=== PATIENT | male | born 1990 | race Caucasian/White ===

== ENCOUNTER 2018-09-28 14:27 | Emergency (ER) | payer MEDICAID ==
[~2018-09-28] VITALS: Ht 175.3 cm; Wt 66.3 kg
[2018-09-28 14:54] LABS: PH, VENOUS 7.241 pH (7.320-7.420)
[2018-09-28 14:55] LABS: O2 FLOW ROOM AIR L/min
[2018-09-28] MEDS ORDERED: SODIUM CHLORIDE 0.9% 1,000ML IVBOLUS ONE ×2 (15:00→16:30)
[2018-09-28] MEDS ORDERED: SODIUM CHLORIDE FLUSH 10ML SYR IVF ONE (15:00)
[2018-09-28 15:02] LABS: BASOPHILS # (AUTO) 0.04 x10^3/uL (0-0.1); BASOPHILS % (AUTO) 1 % (0-1); EOSINOPHILS # (AUTO) 0.06 x10^3/uL (0-0.4); EOSINOPHILS % (AUTO) 1 % (1-7); LYMPHOCYTES # (AUTO) 1.48 x10^3/uL (1-3.4); LYMPHOCYTES % (AUTO) 22 % (22-44); MD NO; MEAN CORPUSCULAR HEMOGLOBIN 32.9 pg (27.5-34.5); MEAN CORPUSCULAR VOLUME 96.8 fL (81-97); MEAN PLATELET VOLUME 8.4 fL (7.4-10.4); MONOCYTES # (AUTO) 0.35 x10^3/uL (0.2-0.8); MONOCYTES % (AUTO) 5 % (2-9); NEUTROPHILS # (AUTO) 4.68 x10^3/uL (1.8-6.8); NEUTROPHILS % (AUTO) 71 % (42-75); PLATELET COUNT 296 x10^3/uL (130-400); RED BLOOD COUNT 4.35 x10^6/uL (4.38-5.82)
[2018-09-28 15:08] LABS: ALBUMIN 3.6 g/dL (3.4-5.0); ANION GAP 17 mmol/L (5-15); CALCIUM 8.4 mg/dL (8.5-10.1); CHLORIDE 94 mmol/L (98-107); CREATININE 1.32 mg/dL (0.7-1.3)
[2018-09-28 15:15] LABS: ACETONE, SERUM Large (80mg/dL) mg/dL (Negative)
[2018-09-28 16:57] VITALS: BP 120/78
== END 2018-09-28 17:00 | disposition home or self-care (01) ==
LOC: ED 16:43
DX: E10.10 Type 1 diabetes mellitus with ketoacidosis without coma (principal); F17.200 Nicotine dependence, unspecified, uncomplicated
CPT/HCPCS: 36415; 80048; 82010; 82040; 82803; 85025; 96360; 99283; J7030

== ENCOUNTER 2018-11-13 14:38 | Inpatient (IN) | payer MEDICAID ==
[~2018-11-13] VITALS: Ht 175.3 cm; Wt 76.2 kg
[2018-11-13 15:09] LABS: PH, VENOUS 7.359 pH (7.320-7.420)
[2018-11-13 15:10] LABS: O2 FLOW RA L/min
[2018-11-13 15:12] LABS: BASOPHILS # (AUTO) 0.02 x10^3/uL (0-0.1); BASOPHILS % (AUTO) 0 % (0-1); EOSINOPHILS # (AUTO) 0.14 x10^3/uL (0-0.4); EOSINOPHILS % (AUTO) 2 % (1-7); LYMPHOCYTES # (AUTO) 1.24 x10^3/uL (1-3.4); LYMPHOCYTES % (AUTO) 13 % (22-44); MD NO; MEAN CORPUSCULAR HEMOGLOBIN 32.2 pg (27.5-34.5); MEAN CORPUSCULAR HGB CONC 33.7 g/dL (33.2-36.2); MEAN CORPUSCULAR VOLUME 95.8 fL (81-97); MONOCYTES # (AUTO) 0.51 x10^3/uL (0.2-0.8); MONOCYTES % (AUTO) 5 % (2-9); NEUTROPHILS # (AUTO) 7.79 x10^3/uL (1.8-6.8); NEUTROPHILS % (AUTO) 80 % (42-75); PLATELET COUNT 257 x10^3/uL (130-400); RED BLOOD COUNT 3.97 x10^6/uL (4.38-5.82)
[2018-11-13 15:21] LABS: ALANINE AMINOTRANSFERASE 21 U/L (12-78); ALBUMIN 3.4 g/dL (3.4-5.0); ANION GAP 9 mmol/L (5-15); CALCIUM 8.3 mg/dL (8.5-10.1); CHLORIDE 95 mmol/L (98-107); CREATININE 1.25 mg/dL (0.7-1.3)
[2018-11-13 15:24] LABS: ALKALINE PHOSPHATASE 120 U/L (45-117); BILIRUBIN,TOTAL 0.3 mg/dL (0.2-1.0); TOTAL PROTEIN 6.7 g/dL (6.4-8.2)
[2018-11-13] MEDS ORDERED: OXYcodone/APAP 10/325MG TABLET ONE (15:55)
[2018-11-13] MEDS ORDERED: INSULIN REGULAR 100 UNITS/ML, 3ML VIAL ONE (15:56)
[2018-11-13] MEDS ORDERED: INSULIN REGULAR 100 UNITS/ML, 3ML VIAL SQ-INSULIN ONE (16:00)
[2018-11-13] MEDS ORDERED: OXYcodone/APAP 10/325MG TABLET PO ONE (16:00)
[2018-11-13] MEDS ORDERED: SODIUM CHLORIDE 0.9%, 500ML IVBOLUS ONE (16:00)
[2018-11-13 16:17] LABS: ACETONE, SERUM Moderate(40mg/dL) mg/dL (Negative)
[2018-11-13] MEDS ORDERED: INSULIN (16:23)
[2018-11-13] MEDS ORDERED: OXYC-302 PO (16:23)
[2018-11-13] MEDS ORDERED: ALPR0.25 PO (16:23)
[2018-11-13] MEDS ORDERED: ENALAPRILAT 1.25 MG/ML, 2ML IV PRN (16:30)
[2018-11-13] MEDS ORDERED: ONDANSETRON 2MG/ML, 2ML IVPush PRN (16:30)
[2018-11-13] MEDS ORDERED: hydrALAzine 20 MG/ML, 1ML IV PRN (16:30)
[2018-11-13] MEDS ORDERED: LACTULOSE 10 GM/15 ML UDC PO ONE (16:30)
[2018-11-13] MEDS ORDERED: GLUCAGON 1 MG IM PRN (16:30)
[2018-11-13] MEDS ORDERED: LABETALOL 5MG/ML, 20ML IVPush PRN (16:30)
[2018-11-13] MEDS ORDERED: DEXTROSE 4 GM TAB.CHEW PO PRN (16:30)
[2018-11-13] MEDS ORDERED: DOCUSATE 100 MG CAPSULE PO PRN (16:30)
[2018-11-13] MEDS ORDERED: POLYETHYLENE GLYCOL 17 GM PACKET PO PRN (16:30)
[2018-11-13] MEDS: NICOTINE 14MG/24 HR PATCH.TD24 TD SCH (16:30)
[2018-11-13] MEDS ORDERED: ACETAMINOPHEN 325 MG TABLET PO PRN (16:30)
[2018-11-13] MEDS ORDERED: DEXTROSE 50%, 50ML SYRINGE IVPush PRN (16:30)
[2018-11-13 16:46] LABS: HEMOGLOBIN A1C 13.2 % (4.2-6.3)
[2018-11-13 16:54] LABS: MICROSCOPIC INDICATED
[2018-11-13 16:55] LABS: CULTURE INDICATED? NO
[2018-11-13] MEDS: morphine SULFATE 10 MG/ML, 1ML IVPush PRN ×2 (17:49→22:03)
[2018-11-13] MEDS: SODIUM CHLORIDE 0.9% 1,000 ML IV SCH ×2 (17:49→23:18)
[2018-11-13 17:58] VITALS: BP 128/80
[2018-11-13 19:25] VITALS: BP 117/73
[2018-11-13] MEDS: INSULIN LISPRO 100 UNITS/ML, PEN SQ-INSULIN SCH (22:02)
[2018-11-13] MEDS: SODIUM CHLORIDE FLUSH 10ML SYR IVF SCH (22:03)
[2018-11-13] MEDS: BACLOFEN 10 MG TABLET PO PRN (23:18)
[2018-11-14 01:15] VITALS: BP 113/72
[2018-11-14] MEDS: morphine SULFATE 10 MG/ML, 1ML IVPush PRN ×3 (01:38→09:51)
[2018-11-14 05:47] VITALS: BP 126/77
[2018-11-14] MEDS: SODIUM CHLORIDE 0.9% 1,000 ML IV SCH ×3 (05:49→16:03)
[2018-11-14 06:18] LABS: ANION GAP 7 mmol/L (5-15); CHLORIDE 104 mmol/L (98-107); CREATININE 1.02 mg/dL (0.7-1.3)
[2018-11-14 07:45] VITALS: BP 136/83
[2018-11-14] MEDS: BACLOFEN 10 MG TABLET PO PRN (08:17)
[2018-11-14] MEDS: OXYcodone/APAP 5/325MG TABLET PO PRN ×2 (08:17→12:18)
[2018-11-14] MEDS: INSULIN LISPRO 100 UNITS/ML, PEN SQ-INSULIN SCH ×3 (08:19→16:00)
[2018-11-14] MEDS: SODIUM CHLORIDE FLUSH 10ML SYR IVF SCH (08:21)
[2018-11-14] MEDS ORDERED: SENNA/DOCUSATE TABLET PO SCH (09:00)
[2018-11-14] MEDS ORDERED: INSU100I13 SQ ×2 (10:12)
[2018-11-14] MEDS ORDERED: INSU100I18 SQ ×2 (10:12→15:11)
[2018-11-14] MEDS ORDERED: INSULIN GLARGINE 100 UNITS/ML, PEN SQ-INSULIN SCH ×2 (10:30→21:00)
[2018-11-14 12:53] VITALS: BP 128/79
[2018-11-14] MEDS: NICOTINE 14MG/24 HR PATCH.TD24 TD SCH (16:03)
== END 2018-11-14 17:01 | disposition home or self-care (01) | DRG 392 ==
LOC: ED 15:50 → 3NE 15:56 → UNDOADMIN 15:56 → EDIP 15:56 → ED 15:56
PROVIDERS: ADMIT Family Medicine; ATTEND Family Medicine
DX: K59.03 Drug induced constipation (principal); E87.1 Hypo-osmolality and hyponatremia; E86.0 Dehydration; F17.200 Nicotine dependence, unspecified, uncomplicated; E10.40 Type 1 diabetes mellitus with diabetic neuropathy, unspecified; R33.9 Retention of urine, unspecified; T50.905A Adverse effect of unspecified drugs, medicaments and biological substances, initial encounter; Y92.89 Other specified places as the place of occurrence of the external cause; G89.29 Other chronic pain; E10.65 Type 1 diabetes mellitus with hyperglycemia; F41.9 Anxiety disorder, unspecified; Z88.1 Allergy status to other antibiotic agents
CPT/HCPCS: 36415; 74018; 76770; 80048; 80053; 81001; 82010; 82803; 82947; 82962; 83036; 83690; 83735; 84100; 85025; 96361; 96374; G0378; J1815; J2270; J7030; J7040

== ENCOUNTER 2018-12-05 13:33 | Emergency (ER) | payer MEDICAID ==
[~2018-12-05] VITALS: Ht 175.3 cm; Wt 71.2 kg
[~2018-12-05 13:33] MED LIST: ALPR0.25 PO; INSU100I13 SQ; INSU100I18 SQ; INSULIN; OXYC-302 PO
[2018-12-05 14:44] LABS: PH, VENOUS 7.294 pH (7.320-7.420)
--- NOTE | 2018-12-05 14:44 | NUR ---
PT AMBULATORY TO ROOM FROM LOBBY, UPRIGHT STEADY GAIT
[2018-12-05] MEDS ORDERED: OXYC5CAP2 PO (14:47)
[2018-12-05] MEDS ORDERED: ALPR1TAB2 PO (14:47)
[2018-12-05 14:57] LABS: ALBUMIN 3.6 g/dL (3.4-5.0); ANION GAP 5 mmol/L (5-15); CALCIUM 8.3 mg/dL (8.5-10.1); CHLORIDE 97 mmol/L (98-107); O2 FLOW ROOM AIR L/min
[2018-12-05] MEDS ORDERED: SODIUM CHLORIDE 0.9% 1,000ML IVBOLUS ONE ×2 (15:00→15:30)
[2018-12-05 15:04] LABS: BASOPHILS # (AUTO) 0.04 x10^3/uL (0-0.1); BASOPHILS % (AUTO) 1 % (0-1); EOSINOPHILS % (AUTO) 5 % (1-7); LYMPHOCYTES # (AUTO) 2.14 x10^3/uL (1-3.4); LYMPHOCYTES % (AUTO) 27 % (22-44); MD NO; MEAN CORPUSCULAR HEMOGLOBIN 31.2 pg (27.5-34.5); MEAN CORPUSCULAR HGB CONC 33.7 g/dL (33.2-36.2); MEAN CORPUSCULAR VOLUME 92.5 fL (81-97); MONOCYTES # (AUTO) 0.56 x10^3/uL (0.2-0.8); MONOCYTES % (AUTO) 7 % (2-9); NEUTROPHILS % (AUTO) 60 % (42-75); PLATELET COUNT 297 x10^3/uL (130-400); RED BLOOD COUNT 4.57 x10^6/uL (4.38-5.82)
[2018-12-05 15:07] LABS: ALANINE AMINOTRANSFERASE 21 U/L (12-78); ALKALINE PHOSPHATASE 99 U/L (45-117); BILIRUBIN,TOTAL 0.5 mg/dL (0.2-1.0); CREATININE 1.64 mg/dL (0.7-1.3); TOTAL PROTEIN 7.3 g/dL (6.4-8.2)
[2018-12-05 15:42] LABS: ACETONE, SERUM Negative (Negative)
--- NOTE | 2018-12-05 15:53 | NUR ---
WARM BLANKET PROVIDED. URINE COLLECTED AND SENT TO LAB.
[2018-12-05 16:08] LABS: MICROSCOPIC AUTO
[2018-12-05 16:16] LABS: CULTURE INDICATED? NO
[2018-12-05 16:24] VITALS: BP 115/74
--- NOTE | 2018-12-05 16:24 | NUR ---
FIRST LITER OF NS DONE. FS BS CHECKED AND READS "HI" (>600). CARL ANTHONY NOTIFIED.
--- NOTE | 2018-12-05 16:25 | NUR ---
SECOND LITER NS BSTARTED.
[2018-12-05] MEDS ORDERED: INSULIN REGULAR 100 UNITS/ML, 3ML VIAL IVPush ONE (16:30)
[2018-12-05] MEDS ORDERED: INSULIN REGULAR 100 UNITS/ML, 3ML VIAL ONE (16:36)
--- NOTE | 2018-12-05 16:47 | NUR ---
Insulin double checked with Fabian Dickson-LUIS, prior to administration.
--- NOTE | 2018-12-05 17:37 | NUR ---
Patient/Caregiver given discharge instructions and they have confirmed that they understand the instructions. Patient ambulatory with steady gait.
== END 2018-12-05 17:38 | disposition home or self-care (01) ==
LOC: ED 17:27
DX: E10.65 Type 1 diabetes mellitus with hyperglycemia (principal)
CPT/HCPCS: 36415; 80053; 81001; 82010; 82803; 82962; 83930; 85025; 96361; 96374; 99283; J7030

== ENCOUNTER 2019-02-19 10:06 | Emergency (ER) | payer MEDICAID ==
[~2019-02-19] VITALS: Ht 175.3 cm; Wt 69.1 kg
[~2019-02-19 10:06] MED LIST changes: +ALPR1TAB2 PO; +OXYC5CAP2 PO
--- NOTE | 2019-02-19 10:26 | NUR ---
PT PRESENTED TO ED WITH VOMITTING X 3 DAYS. PT STATES HE WAS INTUBATED LAST WEEK FOR DKA. ASSESSMENT COMPLETED. PT PLACED ON BP AND CONT. PULSE OXIMETER. AWAITING MD.
--- NOTE | 2019-02-19 11:08 | NUR ---
attempted iv x 3 and pt refusing further ivs
--- NOTE | 2019-02-19 11:20 | NUR ---
PT STATED THAT I COULD NOT ATTEMPT ANOTHER IV. PT STATED I WANT A CENTRAL LINE. PT MOVED TO TRAUMA 3 FOR CENTRAL LINE INSERTION. REPORT GIVEN TO AUDELIA SMITH.
--- NOTE | 2019-02-19 11:25 | NUR ---
PT MOVED TO TR03. PT A&OX4. NO ACUTE DISTRESS NOTED. Addendum: 02/19/19 at 1139 by MARVIN RECEIVED BEDSIDE REPORT FROM LUIS LOCKETT. ASSUMING PT CARE AT THIS TIME.
[2019-02-19] MEDS ORDERED: SODIUM CHLORIDE 0.9% 1,000ML IVBOLUS ONE (11:30)
[2019-02-19] MEDS ORDERED: SODIUM CHLORIDE FLUSH 10ML SYR IVF ONE (11:30)
[2019-02-19] MEDS ORDERED: LORazepam 2 MG/ML, 1ML IVPush ONE (11:30)
[2019-02-19] MEDS ORDERED: METOCLOPRAMIDE 5 MG/ML, 2ML IVPush ONE (11:30)
--- NOTE | 2019-02-19 11:38 | NUR ---
US GUIDED IV ESTABLISHED BY BRANDON SHABAZZ. PT TOLERATED WITH NO COMPLICATIONS.
[2019-02-19 11:43] VITALS: BP 145/93
[2019-02-19] MEDS ORDERED: METOCLOPRAMIDE 5 MG/ML, 2ML ONE (11:47)
[2019-02-19] MEDS ORDERED: LORazepam 2 MG/ML, 1ML ONE (11:48)
[2019-02-19 12:02] LABS: BASOPHILS # (AUTO) 0.03 x10^3/uL (0-0.1); BASOPHILS % (AUTO) 1 % (0-1); EOSINOPHILS # (AUTO) 0.06 x10^3/uL (0-0.4); EOSINOPHILS % (AUTO) 1 % (1-7); LYMPHOCYTES # (AUTO) 0.92 x10^3/uL (1-3.4); LYMPHOCYTES % (AUTO) 20 % (22-44); MD NO; MEAN CORPUSCULAR HEMOGLOBIN 30.7 pg (27.5-34.5); MEAN CORPUSCULAR HGB CONC 33.5 g/dL (33.2-36.2); MEAN CORPUSCULAR VOLUME 91.5 fL (81-97); MEAN PLATELET VOLUME 9.2 fL (7.4-10.4); MONOCYTES % (AUTO) 9 % (2-9); NEUTROPHILS # (AUTO) 3.13 x10^3/uL (1.8-6.8); NEUTROPHILS % (AUTO) 69 % (42-75); PLATELET COUNT 263 x10^3/uL (130-400); RED BLOOD COUNT 4.27 x10^6/uL (4.38-5.82); RED CELL DISTRIBUTION WIDTH 13.9 % (9.4-14.8)
--- NOTE | 2019-02-19 12:07 | NUR ---
PT REFUSING TO STAY. PT WANTS TO AMA. EDMD AWARE. PT EDUCATED REAGARDING ALL RISKS OF LEAVING AMA, INCLUDING . PT VERBALIZED UNDERSTANDING. PT TOOK OFF ALL MONITORS. PT LEFT WITH ALL PERSONAL BELONGINGS.
[2019-02-19 12:12] LABS: ALANINE AMINOTRANSFERASE 16 U/L (12-78); ALBUMIN 3.5 g/dL (3.4-5.0); ANION GAP 13 mmol/L (5-15); CALCIUM 8.5 mg/dL (8.5-10.1); CHLORIDE 87 mmol/L (98-107); CREATININE 1.34 mg/dL (0.7-1.3)
[2019-02-19 12:14] LABS: ALKALINE PHOSPHATASE 103 U/L (45-117); BILIRUBIN,TOTAL 0.5 mg/dL (0.2-1.0); TOTAL PROTEIN 7.3 g/dL (6.4-8.2)
--- NOTE | 2019-02-19 12:14 | NUR ---
PIV D/C WITH TIP INTACT. PRESSURE DRESSING APPLIED
--- NOTE | 2019-02-19 12:17 | NUR ---
PT AMBULATORY WITH STEADY GAIT.
== END 2019-02-19 12:19 | disposition left against medical advice (07) ==
LOC: ED 12:13
DX: E11.65 Type 2 diabetes mellitus with hyperglycemia (principal); E11.10 Type 2 diabetes mellitus with ketoacidosis without coma; E87.6 Hypokalemia; E86.0 Dehydration; N28.9 Disorder of kidney and ureter, unspecified; E87.1 Hypo-osmolality and hyponatremia
CPT/HCPCS: 36415; 80053; 85025; 93005; 96374; 96375; 99284; J2060; J2765

== ENCOUNTER 2019-04-29 20:21 | Inpatient (IN) | payer MEDICAID ==
[~2019-04-29] VITALS: Ht 175.3 cm; Wt 65.8 kg
--- NOTE | 2019-04-29 20:30 | NUR ---
Fsbg taken in triage w/ a result of "Hi"
[2019-04-29] MEDS ORDERED: INSU100I13 SQ-INSULIN (20:44)
[2019-04-29] MEDS ORDERED: OXYC10TA6 PO (20:44)
--- NOTE | 2019-04-29 20:45 | NUR ---
PT TO ROOM 23 WITH SPOUSE. IN TRIAGE, FSBG TAKEN AND RESULT "HI," PER PT TOOK HIS FSBG AT 1200 TODAY AND IT READ "CRITICAL HIGH." GAVE HIMSELF EITHER "6-8 UNITS OF INSULIN, IT WAS STILL CRITICAL HIGH BUT I DIDN'T EAT ANYTHING, I COULDN'T KEEP IT DOWN SO I JUST DRANK A BUNCH OF WATER AND DIET SODA. I'M NOT HERE FOR MY BLOOD SUGAR, I'M HERE FOR MY RIGHT PINKY TOE, IT HAS NO TOENAIL AND I THINK IT'S INFECTED." PT AAO X 4, DRESSED IN GOWN AND ATTACHED TO MONITOR. ATTEMPT FOR PIV X 2.
--- NOTE | 2019-04-29 20:55 | NUR ---
PIV PLACED WITH ULTRASOUND GUIDANCE BY THIS RN.
[2019-04-29] MEDS: ALPRazolam 1MG TAB PO SCH (21:00)
--- NOTE | 2019-04-29 21:20 | NUR ---
AT BEDSIDE FOR EVAL.
--- NOTE | 2019-04-29 21:20 | NUR ---
MD GRULLON TO BEDSIDE, DKA WORKUP IN PROGRESS.
--- NOTE | 2019-04-29 21:20 | NUR ---
FSBG "HI" ON MONITOR.
[2019-04-29] MEDS ORDERED: ONDANSETRON 2MG/ML, 2ML IVPush ONE (21:30)
[2019-04-29] MEDS ORDERED: SODIUM CHLORIDE 0.9% 1,000ML IVBOLUS ONE (21:30)
[2019-04-29 21:41] LABS: BASOPHILS # (AUTO) 0.03 x10^3/uL (0-0.1); BASOPHILS % (AUTO) 1 % (0-1); EOSINOPHILS # (AUTO) 0.16 x10^3/uL (0-0.4); EOSINOPHILS % (AUTO) 3 % (1-7); LYMPHOCYTES # (AUTO) 1.79 x10^3/uL (1-3.4); LYMPHOCYTES % (AUTO) 36 % (22-44); MD NO; MEAN CORPUSCULAR HEMOGLOBIN 32.4 pg (27.5-34.5); MEAN CORPUSCULAR HGB CONC 33.2 g/dL (33.2-36.2); MEAN CORPUSCULAR VOLUME 97.6 fL (81-97); MEAN PLATELET VOLUME 9.1 fL (7.4-10.4); MONOCYTES # (AUTO) 0.47 x10^3/uL (0.2-0.8); MONOCYTES % (AUTO) 10 % (2-9); NEUTROPHILS % (AUTO) 50 % (42-75); PLATELET COUNT 211 x10^3/uL (130-400); RED BLOOD COUNT 3.82 x10^6/uL (4.38-5.82); RED CELL DISTRIBUTION WIDTH 13.1 % (9.4-14.8)
[2019-04-29 21:44] LABS: PH, VENOUS 7.265 pH (7.320-7.420)
[2019-04-29 21:46] LABS: ACETONE, SERUM Small (20mg/dL) mg/dL (Negative)
[2019-04-29 21:50] LABS: ALANINE AMINOTRANSFERASE 20 U/L (12-78); ALBUMIN 3.6 g/dL (3.4-5.0); ANION GAP 10 mmol/L (5-15); CALCIUM 8.2 mg/dL (8.5-10.1); CHLORIDE 88 mmol/L (98-107); CREATININE 1.87 mg/dL (0.7-1.3)
[2019-04-29 21:52] LABS: ALKALINE PHOSPHATASE 87 U/L (45-117); BILIRUBIN,TOTAL 0.4 mg/dL (0.2-1.0); TOTAL PROTEIN 7.2 g/dL (6.4-8.2)
[2019-04-29] MEDS ORDERED: REGULAR INSULIN 62.5 UNITS in SODIUM CHLORIDE 0.9% 249.375 ML IV PRN (21:57)
[2019-04-29] MEDS ORDERED: SODIUM CHLORIDE 0.9% 1,000 ML IV SCH (22:16)
[2019-04-29] MEDS ORDERED: REGULAR INSULIN 125 UNITS in SODIUM CHLORIDE 0.9% 248.75 ML IV PRN (22:30)
--- NOTE | 2019-04-29 22:35 | NUR ---
INCORRECT DOSE FOR INSULIN GTT INITIALLY DELIVERED TO ER, NEW DOSE REQUESTED.
--- NOTE | 2019-04-29 22:36 | NUR ---
PT AMBULATORY TO BATHROOM, STEADY GAIT. UA PROVIDED AND SENT.
[2019-04-29 22:47] LABS: HEMOGLOBIN A1C 12.7 % (4.2-6.3)
[2019-04-29 22:49] LABS: MICROSCOPIC AUTO
[2019-04-29] MEDS ORDERED: ONDANSETRON 2MG/ML, 2ML IVPush PRN (23:00)
[2019-04-29 23:04] LABS: CULTURE INDICATED? NO
--- NOTE | 2019-04-29 23:17 | NUR ---
INSULIN DRIP STARTED AT 7 UNITS PER HOUR.
--- NOTE | 2019-04-29 23:20 | NUR ---
PT MEDICATED PER EMAR.
[2019-04-29 23:42] VITALS: BP 114/71
--- NOTE | 2019-04-29 23:48 | NUR ---
REPORT TO DELROY SMITH.
[2019-04-30] MEDS: D5%-0.45% NACL 1,000 ML IV SCH ×2 (02:14→04:29)
[2019-04-30 02:52] LABS: BASOPHILS # (AUTO) 0.04 x10^3/uL (0-0.1); BASOPHILS % (AUTO) 1 % (0-1); EOSINOPHILS # (AUTO) 0.21 x10^3/uL (0-0.4); EOSINOPHILS % (AUTO) 4 % (1-7); LYMPHOCYTES # (AUTO) 2.17 x10^3/uL (1-3.4); LYMPHOCYTES % (AUTO) 39 % (22-44); MD NO; MEAN CORPUSCULAR HEMOGLOBIN 32.3 pg (27.5-34.5); MEAN CORPUSCULAR HGB CONC 33.6 g/dL (33.2-36.2); MEAN CORPUSCULAR VOLUME 96.1 fL (81-97); MEAN PLATELET VOLUME 8.4 fL (7.4-10.4); MONOCYTES # (AUTO) 0.62 x10^3/uL (0.2-0.8); MONOCYTES % (AUTO) 11 % (2-9); NEUTROPHILS # (AUTO) 2.54 x10^3/uL (1.8-6.8); NEUTROPHILS % (AUTO) 46 % (42-75); PLATELET COUNT 204 x10^3/uL (130-400); RED BLOOD COUNT 3.59 x10^6/uL (4.38-5.82); RED CELL DISTRIBUTION WIDTH 13.4 % (9.4-14.8)
[2019-04-30 03:03] LABS: ANION GAP 10 mmol/L (5-15); CALCIUM 8.1 mg/dL (8.5-10.1); CHLORIDE 102 mmol/L (98-107); CREATININE 1.44 mg/dL (0.7-1.3)
[2019-04-30] MEDS: ALPRazolam 1MG TAB PO SCH (06:16)
[2019-04-30] MEDS: OXYcodone IR 5MG TABLET PO SCH ×3 (06:16→14:09)
[2019-04-30 06:40] LABS: ANION GAP 7 mmol/L (5-15); CALCIUM 8.2 mg/dL (8.5-10.1); CHLORIDE 106 mmol/L (98-107)
[2019-04-30] MEDS ORDERED: INSULIN GLARGINE 100 UNITS/ML, PEN ONE (07:39)
[2019-04-30] MEDS ORDERED: INSULIN GLARGINE 100 UNITS/ML, PEN SQ-INSULIN ONE (08:00)
[2019-04-30] MEDS ORDERED: ALPRazolam 1MG TAB PO SCH (09:00)
[2019-04-30] MEDS ORDERED: POTASSIUM CHLORIDE 20 MEQ TAB.ER.PRT PO SCH (09:30)
[2019-04-30] MEDS ORDERED: DEXTROSE 4 GM TAB.CHEW PO PRN (09:30)
[2019-04-30] MEDS ORDERED: GLUCAGON 1 MG IM PRN (09:30)
[2019-04-30] MEDS ORDERED: DEXTROSE 50%, 50ML SYRINGE IVPush PRN (09:30)
[2019-04-30] MEDS ORDERED: INSULIN LISPRO 100 UNITS/ML, PEN SQ-INSULIN SCH (11:00)
[2019-04-30 15:32] VITALS: BP 151/91
[2019-04-30] MEDS ORDERED: SODIUM CHLORIDE FLUSH 10ML SYR IVF SCH (21:00)
[2019-04-30] MEDS ORDERED: INSULIN GLARGINE 100 UNITS/ML, PEN SQ-INSULIN SCH (21:00)
== END 2019-04-30 16:45 | disposition left against medical advice (07) | DRG 638 ==
LOC: ED 21:10 → EDIP 22:24 → CCU 23:40 → 3NE 04-30 14:48
PROVIDERS: ADMIT Family Medicine; ATTEND Family Medicine
DX: E10.10 Type 1 diabetes mellitus with ketoacidosis without coma (principal); E87.1 Hypo-osmolality and hyponatremia; E11.00 Type 2 diabetes mellitus with hyperosmolarity without nonketotic hyperglycemic-hyperosmolar coma (NKHHC); Z53.21 Procedure and treatment not carried out due to patient leaving prior to being seen by health care provider; E86.0 Dehydration; G89.29 Other chronic pain; E87.5 Hyperkalemia; F17.200 Nicotine dependence, unspecified, uncomplicated; F41.9 Anxiety disorder, unspecified; L97.519 Non-pressure chronic ulcer of other part of right foot with unspecified severity; N28.9 Disorder of kidney and ureter, unspecified; Z79.4 Long term (current) use of insulin; Z90.49 Acquired absence of other specified parts of digestive tract
CPT/HCPCS: 80048; 80053; 81001; 82010; 82803; 82962; 83036; 83690; 83930; 85025; 87070; 87077; 87081; 87205; 96365; G0378; J1815; J7030; J7050

== ENCOUNTER 2019-09-11 13:32 | Inpatient (IN) | payer MEDICAID, OTHER ==
[~2019-09-11] VITALS: Ht 175.3 cm; Wt 70.5 kg
[~2019-09-11 13:32] MED LIST changes: +ALPR2TAB2 PO; +INSU100I13 SQ-INSULIN; +OXYC10TA6 PO; +OXYC5TAB2 PO
--- NOTE | 2019-09-11 13:42 | NUR ---
EMELIA RN: PT BIB [facility] FOR N/V PT IS ANXIOUS. PT REPORTS HE LEFT [facility] YESTERDAY AMA FOR DKA. VS STABLE. CARDIAC MONIOR ON. CALL LIGHT IN PLACE.
[2019-09-11] MEDS ORDERED: SODIUM CHLORIDE 0.9% 1,000 ML IV ONE (13:45)
--- NOTE | 2019-09-11 13:52 | NUR ---
EMELIA RN: PT REFUSED TEMP.
[2019-09-11] MEDS ORDERED: METOCLOPRAMIDE 5 MG/ML, 2ML ONE (13:57)
[2019-09-11] MEDS ORDERED: MORPHINE SULFATE 4 MG/ML, 1ML ONE (13:57)
[2019-09-11] MEDS ORDERED: SODIUM CHLORIDE 0.9% 1,000ML IVBOLUS ONE (14:00)
[2019-09-11] MEDS ORDERED: morphine SULFATE 10 MG/ML, 1ML IVPush ONE (14:00)
[2019-09-11] MEDS ORDERED: METOCLOPRAMIDE 5 MG/ML, 2ML IVPush ONE (14:00)
[2019-09-11] MEDS ORDERED: SODIUM CHLORIDE FLUSH 10ML SYR IVF ONE (14:00)
--- NOTE | 2019-09-11 14:10 | NUR ---
PIV PLACED BY US, 1 STICK, PT TOLERATED WELL. LABS COLLECTED AND LABLED AT BEDSIDE.
[2019-09-11 14:16] LABS: FIO2 ROOM AIR %
[2019-09-11 14:17] LABS: BASOPHILS # (AUTO) 0.02 x10^3/uL (0-0.1); BASOPHILS % (AUTO) 0 % (0-1); EOSINOPHILS # (AUTO) 0.06 x10^3/uL (0-0.4); EOSINOPHILS % (AUTO) 1 % (1-7); LYMPHOCYTES # (AUTO) 1.49 x10^3/uL (1-3.4); LYMPHOCYTES % (AUTO) 21 % (22-44); MD NO; MEAN CORPUSCULAR HEMOGLOBIN 32.5 pg (27.5-34.5); MEAN CORPUSCULAR HGB CONC 32.9 g/dL (33.2-36.2); MEAN CORPUSCULAR VOLUME 98.6 fL (81-97); MONOCYTES # (AUTO) 0.29 x10^3/uL (0.2-0.8); MONOCYTES % (AUTO) 4 % (2-9); NEUTROPHILS # (AUTO) 5.14 x10^3/uL (1.8-6.8); NEUTROPHILS % (AUTO) 74 % (42-75); PLATELET COUNT 236 x10^3/uL (130-400); RED BLOOD COUNT 4.53 x10^6/uL (4.38-5.82); RED CELL DISTRIBUTION WIDTH 13.8 % (9.4-14.8)
[2019-09-11 14:19] LABS: PH, VENOUS 6.987 pH (7.320-7.420)
--- NOTE | 2019-09-11 14:30 | NUR ---
SECOND PIV INITIATED.
[2019-09-11 14:31] LABS: ALANINE AMINOTRANSFERASE 21 U/L (12-78); ALBUMIN 3.7 g/dL (3.4-5.0); ANION GAP 26 mmol/L (5-15); CALCIUM 8.6 mg/dL (8.5-10.1); CHLORIDE 105 mmol/L (98-107); CREATININE 1.82 mg/dL (0.7-1.3)
[2019-09-11 14:34] LABS: ALKALINE PHOSPHATASE 81 U/L (45-117); BILIRUBIN,TOTAL 0.7 mg/dL (0.2-1.0); TOTAL PROTEIN 7.1 g/dL (6.4-8.2)
--- NOTE | 2019-09-11 14:37 | NUR ---
PT ATTEMPTING TO PROVIDE UA SAMPLE AT THIS TIME.
--- NOTE | 2019-09-11 14:39 | NUR ---
SECOND PIV PLACED WITH US AT THIS TIME. PT NOT FOLLWOING PRECAUTIONS IN IV MAINTENANCE CARE.
--- NOTE | 2019-09-11 14:43 | NUR ---
PT ATTEMPTED AND WAS UNABLE TO PROVIDE UA SAMPLE AT THIS TIME.
[2019-09-11] MEDS ORDERED: ONDANSETRON ODT 4 MG ONE (14:44)
--- NOTE | 2019-09-11 14:55 | NUR ---
YELLOW SLIP SENT TO PHARMACY FOR MEDICATIONS PER DEC.
[2019-09-11] MEDS ORDERED: ONDANSETRON ODT 4 MG PO ONE (15:00)
[2019-09-11] MEDS ORDERED: ACETAMINOPHEN 325 MG TABLET PO PRN (15:00)
[2019-09-11] MEDS ORDERED: ONDANSETRON ODT 4 MG PO PRN (15:00)
[2019-09-11] MEDS ORDERED: BISACODYL 10 MG SUPP PR PRN (15:00)
[2019-09-11] MEDS ORDERED: LABETALOL 5MG/ML, 20ML IVPush PRN (15:00)
[2019-09-11] MEDS ORDERED: POLYETHYLENE GLYCOL 17 GM PACKET PO PRN (15:00)
[2019-09-11] MEDS ORDERED: ONDANSETRON 2MG/ML, 2ML IVPush PRN (15:00)
[2019-09-11 15:10] LABS: ACETONE, SERUM Large (80mg/dL) mg/dL (Negative)
--- NOTE | 2019-09-11 15:22 | NUR ---
PT RESTING ON GURNEY. PT REQUESTING PAIN MEDICATION. PT MADE AWARE OF ORDERS FOR INSULIN GTT AND TO BE ADMITTED TO ICU.
[2019-09-11] MEDS ORDERED: NS + 20MEQ KCL 1,000 ML IV ONE (15:39)
[2019-09-11] MEDS ORDERED: OXYcodone IR 5MG TABLET ONE (15:39)
[2019-09-11] MEDS: OXYcodone IR 5MG TABLET PO PRN ×2 (15:48→18:22)
[2019-09-11] MEDS: NS + 20MEQ KCL 1,000 ML IV SCH ×2 (15:59→17:05)
[2019-09-11] MEDS: REGULAR INSULIN 62.5 UNITS in SODIUM CHLORIDE 0.9% 249.375 ML IV PRN (16:00)
[2019-09-11 16:24] LABS: CULTURE INDICATED? NO; MICROSCOPIC AUTO
[2019-09-11] MEDS: D5%-0.45% NACL 1,000 ML IV SCH ×2 (17:06→21:41)
[2019-09-11] MEDS ORDERED: ALPRazolam 1MG TAB PO SCH (18:00)
[2019-09-11] MEDS ORDERED: OXYC10TA6 PO (18:45)
[2019-09-11 18:53] LABS: ANION GAP 21 mmol/L (5-15); CHLORIDE 112 mmol/L (98-107); CREATININE 1.38 mg/dL (0.7-1.3)
[2019-09-11 22:42] LABS: ANION GAP 16 mmol/L (5-15); CALCIUM 7.6 mg/dL (8.5-10.1); CHLORIDE 116 mmol/L (98-107); CREATININE 1.24 mg/dL (0.7-1.3)
[2019-09-12 02:20] LABS: ALANINE AMINOTRANSFERASE 12 U/L (12-78); ALBUMIN 2.8 g/dL (3.4-5.0); ANION GAP 15 mmol/L (5-15); CHLORIDE 114 mmol/L (98-107); CREATININE 1.17 mg/dL (0.7-1.3)
[2019-09-12 02:21] LABS: BASOPHILS # (AUTO) 0.04 x10^3/uL (0-0.1); BASOPHILS % (AUTO) 0 % (0-1); EOSINOPHILS # (AUTO) 0.04 x10^3/uL (0-0.4); EOSINOPHILS % (AUTO) 0 % (1-7); LYMPHOCYTES # (AUTO) 0.99 x10^3/uL (1-3.4); LYMPHOCYTES % (AUTO) 9 % (22-44); MD NO; MEAN CORPUSCULAR HEMOGLOBIN 31.9 pg (27.5-34.5); MEAN CORPUSCULAR HGB CONC 32.7 g/dL (33.2-36.2); MEAN CORPUSCULAR VOLUME 97.6 fL (81-97); MEAN PLATELET VOLUME 8.1 fL (7.4-10.4); MONOCYTES # (AUTO) 0.72 x10^3/uL (0.2-0.8); MONOCYTES % (AUTO) 7 % (2-9); NEUTROPHILS # (AUTO) 9.33 x10^3/uL (1.8-6.8); NEUTROPHILS % (AUTO) 84 % (42-75); PLATELET COUNT 187 x10^3/uL (130-400); RED BLOOD COUNT 3.91 x10^6/uL (4.38-5.82); RED CELL DISTRIBUTION WIDTH 13.5 % (9.4-14.8)
[2019-09-12 02:22] LABS: ALKALINE PHOSPHATASE 61 U/L (45-117); BILIRUBIN,TOTAL 0.5 mg/dL (0.2-1.0); TOTAL PROTEIN 5.7 g/dL (6.4-8.2)
[2019-09-12 04:05] VITALS: BP 97/47
[2019-09-12] MEDS: D5%-0.45% NACL 1,000 ML IV SCH (05:23)
[2019-09-12] MEDS ORDERED: ALPRazolam 1MG TAB PO SCH (06:00)
[2019-09-12] MEDS ORDERED: MAGNESIUM SULFATE 4 GM in SODIUM CHLORIDE 0.9% 100 ML IV ONE (07:00)
[2019-09-12] MEDS ORDERED: SODIUM PHOSPHATE 20 MMOL in SODIUM CHLORIDE 0.9% 500 ML IV ONE (07:00)
[2019-09-12 07:09] LABS: ANION GAP 12 mmol/L (5-15); CALCIUM 7.9 mg/dL (8.5-10.1); CHLORIDE 114 mmol/L (98-107); CREATININE 1.16 mg/dL (0.7-1.3)
[2019-09-12] MEDS ORDERED: SENNA/DOCUSATE TABLET PO SCH (09:00)
[2019-09-12] MEDS ORDERED: FONDAPARINUX 2.5 MG/0.5 ML SQ SCH (09:00)
[2019-09-12] MEDS: REGULAR INSULIN 62.5 UNITS in SODIUM CHLORIDE 0.9% 249.375 ML IV PRN (09:57)
== END 2019-09-12 10:34 | disposition left against medical advice (07) | DRG 638 ==
LOC: ED 14:43 → EDIP 14:44 → ED 14:56 → ICU 16:51
PROVIDERS: ADMIT Internal Medicine; ATTEND Internal Medicine
DX: E10.10 Type 1 diabetes mellitus with ketoacidosis without coma (principal); N17.9 Acute kidney failure, unspecified; Z88.5 Allergy status to narcotic agent; Z88.8 Allergy status to other drugs, medicaments and biological substances; E86.9 Volume depletion, unspecified; F17.200 Nicotine dependence, unspecified, uncomplicated; F41.9 Anxiety disorder, unspecified; G89.29 Other chronic pain; M54.9 Dorsalgia, unspecified; Z80.0 Family history of malignant neoplasm of digestive organs; Z90.49 Acquired absence of other specified parts of digestive tract; Z91.19 Patient's noncompliance with other medical treatment and regimen; Z53.29 Procedure and treatment not carried out because of patient's decision for other reasons
CPT/HCPCS: 36415; 71045; 80048; 80053; 81001; 82010; 82803; 82962; 83036; 83690; 83735; 84100; 84443; 85025; 87081; 96361; 96374; 96375; 99291; G0378; J1815; J2405; J3475; J3480; Q0162; J2270; J2765; J7030; J7040; J7050

== ENCOUNTER 2019-09-12 23:20 | Inpatient (IN) | payer SELFPAY ==
[~2019-09-12] VITALS: Ht 175.3 cm; Wt 68.5 kg
[2019-09-12] MEDS ORDERED: ALBUTEROL/IPRATROPIUM 2.5MG/0.5MG, 3 ML ONE (23:23)
[2019-09-12] MEDS ORDERED: SODIUM CHLORIDE 0.9% 1,000 ML IV ONE (23:25)
[2019-09-12] MEDS ORDERED: REGULAR INSULIN 62.5 UNITS in SODIUM CHLORIDE 0.9% 249.375 ML IV STA (23:27)
[2019-09-12] MEDS ORDERED: SODIUM CHLORIDE 0.9% 1,000ML IVBOLUS ONE (23:30)
[2019-09-12 23:45] LABS: BASOPHILS # (AUTO) 0.03 x10^3/uL (0-0.1); BASOPHILS % (AUTO) 0 % (0-1); EOSINOPHILS # (AUTO) 0.01 x10^3/uL (0-0.4); EOSINOPHILS % (AUTO) 0 % (1-7); LYMPHOCYTES # (AUTO) 1.08 x10^3/uL (1-3.4); LYMPHOCYTES % (AUTO) 12 % (22-44); MD NO; MEAN CORPUSCULAR HEMOGLOBIN 31.9 pg (27.5-34.5); MEAN CORPUSCULAR HGB CONC 32.3 g/dL (33.2-36.2); MEAN CORPUSCULAR VOLUME 98.7 fL (81-97); MONOCYTES # (AUTO) 0.22 x10^3/uL (0.2-0.8); MONOCYTES % (AUTO) 3 % (2-9); NEUTROPHILS # (AUTO) 7.71 x10^3/uL (1.8-6.8); NEUTROPHILS % (AUTO) 85 % (42-75); PLATELET COUNT 189 x10^3/uL (130-400); RED BLOOD COUNT 4.35 x10^6/uL (4.38-5.82)
[2019-09-12] MEDS ORDERED: PLEASE ENTER HEIGHT AND WEIGHT MC SCH (23:45)
[2019-09-12 23:50] LABS: ACETONE, SERUM Large (80mg/dL) mg/dL (Negative)
[2019-09-12] MEDS ORDERED: HYDROcodone/APAP 5/325 TABLET ONE (23:55)
[2019-09-12 23:56] LABS: CHLORIDE 107 mmol/L (98-107); PH, VENOUS 6.987 pH (7.320-7.420)
[2019-09-12] MEDS ORDERED: LORazepam 2 MG/ML, 1ML ONE (23:56)
[2019-09-12 23:57] LABS: ALANINE AMINOTRANSFERASE 17 U/L (12-78); ALBUMIN 3.4 g/dL (3.4-5.0); ANION GAP 24 mmol/L (5-15); CALCIUM 8.6 mg/dL (8.5-10.1)
[2019-09-12 23:59] LABS: ALKALINE PHOSPHATASE 78 U/L (45-117); BILIRUBIN,TOTAL 0.5 mg/dL (0.2-1.0); TOTAL PROTEIN 7.1 g/dL (6.4-8.2)
[2019-09-13] MEDS ORDERED: LORazepam 2 MG/ML, 1ML IVPush ONE
[2019-09-13] MEDS ORDERED: HYDROcodone/APAP 5/325 TABLET PO ONE
--- NOTE | 2019-09-13 00:02 | NUR ---
CRITICAL LABS REPORTED TO MD GARCIA, PT TO BE ADMITTED TO ICU, LABS REPORTED TO PRIMARY RN WELL.
--- NOTE | 2019-09-13 00:17 | NUR ---
PT BIBA FROM HOME FOR HAZEL, HYPERGLYCEMIA. FARHAT TO ED RBS 449. PT NAUSEAED, GIVEN 4MG ZOFRAN ENROUTE, 20G TO R AC, POSITIONAL, 200CC NSB GIVEN. PT RESTLESS ON CART. C/O BACK PAIN, REQUESTING WATER, PER MD - OK TO GIVE. PT WAS ADMITTED YESTERDAY, LEFT AMA THIS AM D/T NOONE HOME TO WATCH HIS 4MTH OLD BABY. 18G TO L EJ. LABS DRAWN & SENT. NSB #2 INFUSING WELL. AWARE OF PLAN FOR ADMISSION & INSULIN GTT. GIVEN NORCO FOR BACK PAIN, PT WAS REQESTING MORPHINE LIKE HE WAS GIVEN YESTERDAY. ALSO GIVEN ATIVAN FOR AGGITATION. SPOKE C , SHE STATES HE HASNT BEEN EATING OR TAKING HIS INSULIN X 3 DAYS, EXPECT YESTERDAY AM AFTER HE LEFT AMA HE TOOK HIS AM DOSAGE.
[2019-09-13] MEDS ORDERED: REGULAR INSULIN 62.5 UNITS in SODIUM CHLORIDE 0.9% 249.375 ML IV PRN ×2 (00:30→01:02)
[2019-09-13 00:41] VITALS: BP 108/55
[2019-09-13] MEDS: SODIUM CHLORIDE 0.9% 1,000 ML IV SCH ×2 (00:56→05:47)
[2019-09-13] MEDS ORDERED: ONDANSETRON ODT 4 MG PO PRN (01:00)
[2019-09-13] MEDS ORDERED: ONDANSETRON 2MG/ML, 2ML IVPush PRN (01:00)
[2019-09-13] MEDS ORDERED: BISACODYL 10 MG SUPP PR PRN (01:00)
[2019-09-13] MEDS ORDERED: LORazepam 1MG TABLET PO PRN (01:00)
[2019-09-13] MEDS ORDERED: hydrALAzine 20 MG/ML, 1ML IVPush PRN (01:00)
[2019-09-13] MEDS ORDERED: POLYETHYLENE GLYCOL 17 GM PACKET PO PRN (01:00)
[2019-09-13] MEDS ORDERED: PROMETHAZINE 25 MG/ML, 1ML IM PRN (01:00)
[2019-09-13] MEDS ORDERED: DOCUSATE 100 MG CAPSULE PO PRN (01:00)
[2019-09-13] MEDS ORDERED: ACETAMINOPHEN 325 MG TABLET PO PRN (01:00)
[2019-09-13] MEDS ORDERED: morphine SULFATE 10 MG/ML, 1ML IVPush PRN (01:00)
--- NOTE | 2019-09-13 01:30 | NUR ---
REPORT RECEIVED, CARE ASSUMED. REPORT CALLED TO CCU BY ED RN Ghassan SILVA. PT PREPARED FOR TRANSPORT TO ICU. IV TO RIGHT AC INFILTRATED WITH LESS THAN 100 CC INFUSED. IV D/C'D. IV TO LEFT EJ INFUSING WELL. BLOOD SUGAR 435, REPRESENTING 7% DECREASE; PLAN TO INCREASE INSULING DRIP ON ARRIVAL TO ICU.
--- NOTE | 2019-09-13 01:40 | NUR ---
PT TRANSPORTED TO ICU; BEDSIDE UPDATE REPORT GIVEN. INSULIN DRIP INCREASED TO 7.8 UNITS/HR.
[2019-09-13 01:48] LABS: ANION GAP 22 mmol/L (5-15); CALCIUM 7.9 mg/dL (8.5-10.1); CHLORIDE 108 mmol/L (98-107); CREATININE 1.34 mg/dL (0.7-1.3)
[2019-09-13 01:55] LABS: FREE T4 (FREE THYROXINE) 0.8 ng/dL (0.76-1.46)
[2019-09-13] MEDS ORDERED: SODIUM CHLORIDE 0.9% 1,000ML IVBOLUS ONE (02:00)
[2019-09-13] MEDS: D5%-0.45% NACL 1,000 ML IV SCH ×2 (05:21→13:31)
[2019-09-13 07:35] LABS: ANION GAP 18 mmol/L (5-15); CALCIUM 7.8 mg/dL (8.5-10.1); CHLORIDE 114 mmol/L (98-107); CREATININE 1.19 mg/dL (0.7-1.3)
[2019-09-13] MEDS: OXYcodone IR 5MG TABLET PO PRN ×2 (11:02→16:56)
[2019-09-13 11:33] LABS: ANION GAP 12 mmol/L (5-15); CALCIUM 7.8 mg/dL (8.5-10.1); CHLORIDE 113 mmol/L (98-107); CREATININE 1.32 mg/dL (0.7-1.3)
[2019-09-13 15:33] LABS: ANION GAP 11 mmol/L (5-15); CALCIUM 7.7 mg/dL (8.5-10.1); CHLORIDE 113 mmol/L (98-107); CREATININE 1.28 mg/dL (0.7-1.3)
[2019-09-13 19:22] LABS: ANION GAP 10 mmol/L (5-15); CALCIUM 7.5 mg/dL (8.5-10.1); CHLORIDE 111 mmol/L (98-107); CREATININE 1.12 mg/dL (0.7-1.3)
[2019-09-14] MEDS ORDERED: REGULAR INSULIN 62.5 UNITS in SODIUM CHLORIDE 0.9% 249.375 ML IV PRN (01:02)
== END 2019-09-13 19:31 | disposition left against medical advice (07) | DRG 637 ==
LOC: ED 23:59 → EDIP 09-13 00:03 → ICU 09-13 01:46
PROVIDERS: ADMIT Internal Medicine; ATTEND Internal Medicine
DX: E10.10 Type 1 diabetes mellitus with ketoacidosis without coma (principal); N17.0 Acute kidney failure with tubular necrosis; Z53.29 Procedure and treatment not carried out because of patient's decision for other reasons; Z88.5 Allergy status to narcotic agent; Z88.8 Allergy status to other drugs, medicaments and biological substances; E86.0 Dehydration; F12.90 Cannabis use, unspecified, uncomplicated; F17.210 Nicotine dependence, cigarettes, uncomplicated; F41.9 Anxiety disorder, unspecified; G89.29 Other chronic pain; M54.9 Dorsalgia, unspecified; Z80.0 Family history of malignant neoplasm of digestive organs; Z91.19 Patient's noncompliance with other medical treatment and regimen
CPT/HCPCS: 36415; 80048; 80053; 82010; 82306; 82607; 82803; 82962; 83036; 83690; 83735; 84100; 84439; 84443; 85025; 87081; 93005; G0378; J1815; J2060; J7030; J7050

== ENCOUNTER 2019-11-07 06:28 | Inpatient (IN) | payer MEDICAID, OTHER ==
[~2019-11-07] VITALS: Ht 175.3 cm; Wt 86.6 kg
--- NOTE | 2019-11-07 06:42 | NUR ---
Patient presents to ER c/o right hand pain. Patient states he had cellulitis and had two surgeries last week. Today, the pain is unbearable and it is swollen, red, and has pus. Patient states he was discharged with a rx for antibiotics, however he has not been taking them because his insurance does not cover it.
--- NOTE | 2019-11-07 06:45 | NUR ---
report received from ashley osorio.
--- NOTE | 2019-11-07 06:49 | NUR ---
edmd at bedside to evaluate at this time.
[2019-11-07] MEDS ORDERED: PIPERACILLIN/TAZO/PMX 3.375GM 50 ML IV ONE (07:00)
[2019-11-07] MEDS ORDERED: VANCOMYCIN PER PHARMACY MC PRN ×2 (07:00→11:00)
[2019-11-07] MEDS ORDERED: VANCOMYCIN 1,700 MG in SODIUM CHLORIDE 0.9% 250 ML IV ONE (07:00)
[2019-11-07] MEDS ORDERED: SODIUM CHLORIDE FLUSH 10ML SYR IVF ONE (07:00)
[2019-11-07] MEDS ORDERED: PIPERACILLIN/TAZO/PMX 3.375GM 50 ML ONE (07:01)
--- NOTE | 2019-11-07 07:33 | NUR ---
pt requesting pain med at this time. edmd notified.
--- NOTE | 2019-11-07 07:33 | NUR ---
abx infusing at this time. pt tolerated well. no blood culture needed per edmd.
[2019-11-07 07:51] LABS: ALBUMIN 2.3 g/dL (3.4-5.0); ANION GAP 8 mmol/L (5-15); CALCIUM 8.4 mg/dL (8.5-10.1); CHLORIDE 104 mmol/L (98-107); CREATININE 1.13 mg/dL (0.7-1.3)
[2019-11-07 07:59] LABS: BASOPHILS # (AUTO) 0.04 x10^3/uL (0-0.1); BASOPHILS % (AUTO) 1 % (0-1); EOSINOPHILS # (AUTO) 0.15 x10^3/uL (0-0.4); EOSINOPHILS % (AUTO) 2 % (1-7); LYMPHOCYTES # (AUTO) 1.43 x10^3/uL (1-3.4); LYMPHOCYTES % (AUTO) 17 % (22-44); MD NO; MEAN CORPUSCULAR HEMOGLOBIN 31.4 pg (27.5-34.5); MEAN CORPUSCULAR HGB CONC 32.7 g/dL (33.2-36.2); MEAN CORPUSCULAR VOLUME 96.1 fL (81-97); MEAN PLATELET VOLUME 7.8 fL (7.4-10.4); MONOCYTES # (AUTO) 0.77 x10^3/uL (0.2-0.8); MONOCYTES % (AUTO) 9 % (2-9); NEUTROPHILS # (AUTO) 6.06 x10^3/uL (1.8-6.8); NEUTROPHILS % (AUTO) 72 % (42-75); PLATELET COUNT 418 x10^3/uL (130-400); RED BLOOD COUNT 2.78 x10^6/uL (4.38-5.82); RED CELL DISTRIBUTION WIDTH 14.2 % (9.4-14.8)
--- NOTE | 2019-11-07 08:03 | NUR ---
XRAY IN ROOM AT THIS TIME.
[2019-11-07] MEDS ORDERED: INSULIN SINGLE DOSE, ER ONE (08:12)
--- NOTE | 2019-11-07 08:21 | NUR ---
INSULIN GIVEN AT THIS TIME. PT TOLERATED WELL.
--- NOTE | 2019-11-07 08:33 | NUR ---
WARM BLANCKET GIVEN AT THIS TIME.
[2019-11-07 08:37] LABS: SEDIMENTATION RATE > 120 mm/hr (0-10)
[2019-11-07 08:38] LABS: HCT (SEDRATE) 26.7 % (39.2-51.8)
--- NOTE | 2019-11-07 08:42 | NUR ---
VANCO INFUSING AT THIS TIME. PT TOLERATED WELL.
[2019-11-07] MEDS ORDERED: INSULIN REGULAR 100 UNITS/ML, 3ML VIAL SQ-INSULIN ONE (09:00)
--- NOTE | 2019-11-07 09:42 | NUR ---
URINAL AT BEDSIDE PER PT'S REQUEST.
[2019-11-07] MEDS ORDERED: SODIUM CHLORIDE FLUSH 10ML SYR IVF PRN (10:00)
--- NOTE | 2019-11-07 10:13 | NUR ---
REPORT GIVEN TO RICO SMITH. ALL QUESTIONS ANSWERED.
[2019-11-07] MEDS ORDERED: DOCUSATE 100 MG CAPSULE PO PRN (11:00)
[2019-11-07] MEDS ORDERED: PROMETHAZINE 25 MG/ML, 1ML IM PRN (11:00)
[2019-11-07] MEDS ORDERED: hydrALAzine 20 MG/ML, 1ML IVPush PRN (11:00)
[2019-11-07] MEDS ORDERED: INSULIN GLARGINE 100 UNITS/ML, PEN SQ-INSULIN ONE (11:00)
[2019-11-07] MEDS ORDERED: ONDANSETRON 2MG/ML, 2ML IVPush PRN (11:00)
[2019-11-07] MEDS ORDERED: ONDANSETRON ODT 4 MG PO PRN (11:00)
[2019-11-07] MEDS ORDERED: SODIUM CHLORIDE 0.9% 1,000 ML IV SCH (11:00)
[2019-11-07] MEDS ORDERED: ACETAMINOPHEN 325 MG TABLET PO PRN (11:00)
[2019-11-07] MEDS ORDERED: POLYETHYLENE GLYCOL 17 GM PACKET PO PRN (11:00)
[2019-11-07] MEDS ORDERED: BISACODYL 10 MG SUPP PR PRN (11:00)
[2019-11-07] MEDS ORDERED: OXYcodone/APAP 5/325MG TABLET ONE (11:20)
[2019-11-07] MEDS ORDERED: PHARMACOKINETIC MONITORING MC PRN (11:30)
[2019-11-07] MEDS: OXYcodone/APAP 5/325MG TABLET PO PRN ×3 (11:32→19:32)
[2019-11-07] MEDS: INSULIN LISPRO 100 UNITS/ML, PEN SQ-INSULIN SCH ×3 (11:39→20:19)
[2019-11-07 11:43] LABS: FREE T4 (FREE THYROXINE) 1.17 ng/dL (0.76-1.46)
[2019-11-07] MEDS: PIPERACILLIN/TAZO/PMX 3.375GM 50 ML IV SCH ×2 (12:38→18:35)
[2019-11-07] MEDS: DIPHENHYDRAMINE 25 MG CAPSULE PO PRN ×2 (12:46→19:31)
[2019-11-07 14:15] VITALS: BP 110/66
[2019-11-07] MEDS: HYDROmorphone 2 MG/ML, 1ML IVPush PRN ×3 (15:25→21:54)
[2019-11-07] MEDS ORDERED: VANCOMYCIN 1,700 MG in SODIUM CHLORIDE 0.9% 250 ML IV SCH (17:00)
[2019-11-07 19:21] VITALS: BP 126/77
[2019-11-07] MEDS ORDERED: INSULIN GLARGINE 100 UNITS/ML, PEN SQ-INSULIN SCH (21:00)
[2019-11-07 21:28] VITALS: BP 145/83
[2019-11-07] MEDS ORDERED: FAMOTIDINE 20 MG/2 ML IVPush ONE (22:00)
[2019-11-07] MEDS ORDERED: DIPHENHYDRAMINE 50 MG/ML, 1ML IVPush ONE (22:00)
[2019-11-08 00:25] VITALS: BP 131/79
[2019-11-08] MEDS: PIPERACILLIN/TAZO/PMX 3.375GM 50 ML IV SCH ×2 (00:39→06:31)
[2019-11-08] MEDS: HYDROmorphone 2 MG/ML, 1ML IVPush PRN ×2 (00:52→03:59)
[2019-11-08 01:33] VITALS: BP 126/75
[2019-11-08] MEDS: OXYcodone/APAP 5/325MG TABLET PO PRN ×2 (02:29→09:10)
[2019-11-08 04:50] LABS: BASOPHILS # (AUTO) 0.04 x10^3/uL (0-0.1); BASOPHILS % (AUTO) 1 % (0-1); EOSINOPHILS # (AUTO) 0.18 x10^3/uL (0-0.4); EOSINOPHILS % (AUTO) 3 % (1-7); LYMPHOCYTES # (AUTO) 1.52 x10^3/uL (1-3.4); LYMPHOCYTES % (AUTO) 22 % (22-44); MD NO; MEAN CORPUSCULAR HEMOGLOBIN 31.8 pg (27.5-34.5); MEAN CORPUSCULAR HGB CONC 33.5 g/dL (33.2-36.2); MEAN CORPUSCULAR VOLUME 95.1 fL (81-97); MEAN PLATELET VOLUME 7.9 fL (7.4-10.4); MONOCYTES # (AUTO) 0.61 x10^3/uL (0.2-0.8); MONOCYTES % (AUTO) 9 % (2-9); NEUTROPHILS # (AUTO) 4.58 x10^3/uL (1.8-6.8); NEUTROPHILS % (AUTO) 66 % (42-75); PLATELET COUNT 391 x10^3/uL (130-400); RED BLOOD COUNT 2.62 x10^6/uL (4.38-5.82); RED CELL DISTRIBUTION WIDTH 14.1 % (9.4-14.8)
[2019-11-08 04:57] LABS: CHLORIDE 107 mmol/L (98-107)
[2019-11-08 04:58] LABS: ALANINE AMINOTRANSFERASE 14 U/L (12-78); ANION GAP 5 mmol/L (5-15); CHOLESTEROL, TOTAL 153 mg/dL (140-239); CREATININE 1.17 mg/dL (0.7-1.3)
[2019-11-08 05:00] LABS: ALKALINE PHOSPHATASE 96 U/L (45-117); BILIRUBIN,TOTAL 0.3 mg/dL (0.2-1.0); CHOL/HDL RATIO 2.6; HDL CHOL % 39 % (26-37); HDL CHOLESTEROL (DIRECT) 60 mg/dL (40-60); LDL CHOLESTEROL,CALCULATED 83 mg/dL (54-169); LDL/HDL RATIO 1.4 (0.5-3.0); TOTAL PROTEIN 6.1 g/dL (6.4-8.2); TRIGLYCERIDES 49 mg/dL (50-200); VLDL CHOLESTEROL 10 mg/dL (0-25)
[2019-11-08] MEDS ORDERED: LORazepam 2 MG/ML, 1ML IVPush ONE (05:30)
[2019-11-08 07:02] VITALS: BP 138/80
[2019-11-08] MEDS: INSULIN LISPRO 100 UNITS/ML, PEN SQ-INSULIN SCH (08:00)
== END 2019-11-08 10:31 | disposition left against medical advice (07) | DRG 603 ==
LOC: ED 07:14 → EDIP 09:59 → 3N 10:35
PROVIDERS: ADMIT Internal Medicine; ATTEND Family Medicine
DX: L03.113 Cellulitis of right upper limb (principal); F12.90 Cannabis use, unspecified, uncomplicated; F17.210 Nicotine dependence, cigarettes, uncomplicated; N45.1 Epididymitis; N48.89 Other specified disorders of penis; E10.65 Type 1 diabetes mellitus with hyperglycemia; N50.89 Other specified disorders of the male genital organs; Z80.0 Family history of malignant neoplasm of digestive organs; Z91.14 Patient's other noncompliance with medication regimen; Z88.5 Allergy status to narcotic agent; Z88.8 Allergy status to other drugs, medicaments and biological substances; Z53.29 Procedure and treatment not carried out because of patient's decision for other reasons
CPT/HCPCS: 36415; 73130; 96365; 96372; 96375; 99285; J3490; 80048; 80053; 80061; 82040; 82962; 83036; 83735; 84439; 84443; 85025; 85651; 86140; 87040; G0378; J1170; J2543; J3370; J1200; J1815; J2060; J7030; J7050; Q0163

== ENCOUNTER 2019-11-22 00:20 | Emergency (ER) | payer MEDICAID ==
[~2019-11-22] VITALS: Ht 175.3 cm; Wt 71.5 kg
--- NOTE | 2019-11-22 00:49 | NUR ---
PT. TO ED WITH C/O NON-HEALING WOUND/CELLULITIS TO RIGHT PINKY FINGER. PT. REPORTS HAS BEEN ADMITTED TO [facility] AND [facility] FOR IV ABX BUT HAS LEFT AMA FROM BOTH PLACED. TYPE I DM. PT. COOPERATIVE WITH THIS RN. AWAITING PROVIDER ROMELIA.
[2019-11-22] MEDS ORDERED: SODIUM CHLORIDE 0.9% 1,000ML IVBOLUS ONE ×2 (01:00→02:00)
[2019-11-22 01:34] LABS: BASOPHILS # (AUTO) 0.07 x10^3/uL (0-0.1); BASOPHILS % (AUTO) 1 % (0-1); EOSINOPHILS % (AUTO) 4 % (1-7); LYMPHOCYTES # (AUTO) 1.55 x10^3/uL (1-3.4); LYMPHOCYTES % (AUTO) 27 % (22-44); MD NO; MEAN CORPUSCULAR HGB CONC 32.6 g/dL (33.2-36.2); MEAN CORPUSCULAR VOLUME 95.1 fL (81-97); MEAN PLATELET VOLUME 8.2 fL (7.4-10.4); MONOCYTES # (AUTO) 0.39 x10^3/uL (0.2-0.8); MONOCYTES % (AUTO) 7 % (2-9); NEUTROPHILS # (AUTO) 3.58 x10^3/uL (1.8-6.8); NEUTROPHILS % (AUTO) 62 % (42-75); PLATELET COUNT 322 x10^3/uL (130-400); RED BLOOD COUNT 3.22 x10^6/uL (4.38-5.82); RED CELL DISTRIBUTION WIDTH 14.4 % (9.4-14.8)
[2019-11-22 01:44] LABS: ALANINE AMINOTRANSFERASE 10 U/L (12-78); ANION GAP 6 mmol/L (5-15); CALCIUM 7.9 mg/dL (8.5-10.1); CHLORIDE 101 mmol/L (98-107); CREATININE 1.37 mg/dL (0.7-1.3)
[2019-11-22 01:47] LABS: ALKALINE PHOSPHATASE 84 U/L (45-117); BILIRUBIN,TOTAL 0.3 mg/dL (0.2-1.0); TOTAL PROTEIN 6.2 g/dL (6.4-8.2)
[2019-11-22] MEDS ORDERED: INSULIN REGULAR 100 UNITS/ML, 3ML VIAL IVPush ONE (02:00)
[2019-11-22] MEDS ORDERED: INSULIN SINGLE DOSE, ER ONE (02:01)
--- NOTE | 2019-11-22 02:12 | NUR ---
Pt resting in room. Pt given IV insulin for blood glucose of 644. Second liter IVF started.
[2019-11-22 02:38] LABS: ACETONE, SERUM Negative (Negative)
[2019-11-22 04:19] VITALS: BP 109/69
== END 2019-11-22 04:22 | disposition home or self-care (01) ==
LOC: ED 03:10
DX: E10.65 Type 1 diabetes mellitus with hyperglycemia (principal); M79.641 Pain in right hand; G89.29 Other chronic pain; Z91.14 Patient's other noncompliance with medication regimen
CPT/HCPCS: 36415; 73130; 80053; 82010; 83605; 83930; 85025; 96374; 99284; J1815; J7030; 96361

== ENCOUNTER 2019-11-30 02:56 | Emergency (ER) | payer MEDICAID ==
[~2019-11-30] VITALS: Ht 175.3 cm; Wt 67.9 kg
--- NOTE | 2019-11-30 03:20 | NUR ---
Monitors placed on pt, technology lab teacher at bedside for lab/blood cx draw. Placed call light within reach.
[2019-11-30] MEDS ORDERED: SULFAMETH./TRIMETHOPRIM DS 800MG/160MG TABLET ONE (03:29)
[2019-11-30] MEDS ORDERED: SULFAMETH./TRIMETHOPRIM DS 800MG/160MG TABLET PO ONE (03:30)
--- NOTE | 2019-11-30 03:34 | NUR ---
Medicated per MAR.
[2019-11-30 03:37] LABS: BASOPHILS # (AUTO) 0.07 x10^3/uL (0-0.1); BASOPHILS % (AUTO) 1 % (0-1); EOSINOPHILS # (AUTO) 0.29 x10^3/uL (0-0.4); EOSINOPHILS % (AUTO) 5 % (1-7); LYMPHOCYTES # (AUTO) 1.44 x10^3/uL (1-3.4); LYMPHOCYTES % (AUTO) 22 % (22-44); MD NO; MEAN CORPUSCULAR HGB CONC 32.3 g/dL (33.2-36.2); MEAN CORPUSCULAR VOLUME 95.9 fL (81-97); MEAN PLATELET VOLUME 8.9 fL (7.4-10.4); MONOCYTES # (AUTO) 0.52 x10^3/uL (0.2-0.8); MONOCYTES % (AUTO) 8 % (2-9); NEUTROPHILS # (AUTO) 4.09 x10^3/uL (1.8-6.8); NEUTROPHILS % (AUTO) 64 % (42-75); PLATELET COUNT 159 x10^3/uL (130-400); RED BLOOD COUNT 3.55 x10^6/uL (4.38-5.82); RED CELL DISTRIBUTION WIDTH 14.1 % (9.4-14.8)
[2019-11-30 03:49] LABS: ALANINE AMINOTRANSFERASE 16 U/L (12-78); ALBUMIN 3.2 g/dL (3.4-5.0); ANION GAP 7 mmol/L (5-15); CALCIUM 8.1 mg/dL (8.5-10.1); CHLORIDE 103 mmol/L (98-107); CREATININE 1.63 mg/dL (0.7-1.3)
[2019-11-30 03:51] LABS: ALKALINE PHOSPHATASE 90 U/L (45-117); BILIRUBIN,TOTAL 0.2 mg/dL (0.2-1.0); TOTAL PROTEIN 6.6 g/dL (6.4-8.2)
[2019-11-30 04:03] VITALS: BP 114/70
--- NOTE | 2019-11-30 04:04 | NUR ---
Resting in [facility], aileen noted, call light within reach.
[2019-11-30] MEDS ORDERED: INSULIN SINGLE DOSE, ER ONE (04:15)
[2019-11-30] MEDS ORDERED: INSULIN REGULAR 100 UNITS/ML, 3ML VIAL SQ-INSULIN SCH (04:30)
[2019-11-30] MEDS ORDERED: INSULIN GLARGINE 100 UNITS/ML, PEN SQ-INSULIN ONE (21:00)
== END 2019-11-30 04:51 | disposition home or self-care (01) ==
LOC: ED 04:39
DX: L03.113 Cellulitis of right upper limb (principal); E10.65 Type 1 diabetes mellitus with hyperglycemia; M79.641 Pain in right hand; Z72.9 Problem related to lifestyle, unspecified; F17.210 Nicotine dependence, cigarettes, uncomplicated
CPT/HCPCS: 36415; 80053; 85025; 96372; 99284; J1815

== ENCOUNTER 2019-12-02 15:58 | Emergency (ER) | payer MEDICAID ==
[~2019-12-02] VITALS: Ht 175.3 cm; Wt 69.5 kg
--- NOTE | 2019-12-02 16:37 | NUR ---
RT 5TH FINGER WOUND. MULTIPLE SURGERY ON FINGER. CURRENTLY RED, SWOLLEN, PAINFUL. HX DM-1; NOT TAKING MEDS. PT IS HOMELESS.
[2019-12-02 16:46] VITALS: BP 116/67
--- NOTE | 2019-12-02 17:11 | NUR ---
PT REPORT TO BREAK RN: MERA. PT CARE TRANSFERRED.
[2019-12-02 17:15] LABS: FIO2 ROOM AIR %
[2019-12-02 17:21] LABS: BASOPHILS # (AUTO) 0.06 x10^3/uL (0-0.1); BASOPHILS % (AUTO) 1 % (0-1); EOSINOPHILS # (AUTO) 0.35 x10^3/uL (0-0.4); EOSINOPHILS % (AUTO) 6 % (1-7); LYMPHOCYTES # (AUTO) 1.84 x10^3/uL (1-3.4); LYMPHOCYTES % (AUTO) 33 % (22-44); MD NO; MEAN CORPUSCULAR HEMOGLOBIN 31.1 pg (27.5-34.5); MEAN CORPUSCULAR HGB CONC 33.1 g/dL (33.2-36.2); MEAN PLATELET VOLUME 8.5 fL (7.4-10.4); MONOCYTES # (AUTO) 0.41 x10^3/uL (0.2-0.8); MONOCYTES % (AUTO) 7 % (2-9); NEUTROPHILS % (AUTO) 53 % (42-75); PLATELET COUNT 185 x10^3/uL (130-400); RED BLOOD COUNT 3.36 x10^6/uL (4.38-5.82); RED CELL DISTRIBUTION WIDTH 14.1 % (9.4-14.8)
[2019-12-02 17:26] LABS: ALBUMIN 3.3 g/dL (3.4-5.0); ANION GAP 6 mmol/L (5-15); CALCIUM 8.3 mg/dL (8.5-10.1); CHLORIDE 108 mmol/L (98-107); CREATININE 1.16 mg/dL (0.7-1.3)
[2019-12-02 17:35] LABS: ACETONE, SERUM Negative (Negative)
--- NOTE | 2019-12-02 17:48 | NUR ---
PT REPORT FROM LUIS TESFAYE. PT CARE TO BE RESUMED.
== END 2019-12-02 18:12 | disposition left against medical advice (07) ==
LOC: ED 16:54
DX: S69.91XD Unspecified injury of right wrist, hand and finger(s), subsequent encounter (principal); L03.113 Cellulitis of right upper limb; E10.9 Type 1 diabetes mellitus without complications; Z72.9 Problem related to lifestyle, unspecified; X58.XXXD Exposure to other specified factors, subsequent encounter
CPT/HCPCS: 36415; 80048; 82010; 82040; 82803; 82962; 85025; 99283

== ENCOUNTER 2019-12-17 18:20 | Emergency (ER) | payer MEDICAID ==
[~2019-12-17] VITALS: Ht 175.3 cm; Wt 68.0 kg
[2019-12-17 18:30] VITALS: BP 114/81
[2019-12-17] MEDS ORDERED: NEOSPORIN OINT. PKT 1 PACKET ONE (19:52)
--- NOTE | 2019-12-17 20:05 | NUR ---
Patient/Caregiver given discharge instructions and they have confirmed that they understand the instructions. Patient ambulatory with steady gait.
== END 2019-12-17 20:07 | disposition home or self-care (01) ==
LOC: ED 20:00
DX: G89.11 Acute pain due to trauma (principal); L03.011 Cellulitis of right finger; T81.30XA Disruption of wound, unspecified, initial encounter; E10.9 Type 1 diabetes mellitus without complications; X58.XXXA Exposure to other specified factors, initial encounter; Y93.89 Activity, other specified; Y92.89 Other specified places as the place of occurrence of the external cause; Y99.8 Other external cause status
CPT/HCPCS: 99283

== ENCOUNTER 2020-02-12 19:07 | Emergency (ER) | payer MEDICAID, OTHER ==
[~2020-02-12] VITALS: Ht 175.3 cm; Wt 85.0 kg
--- NOTE | 2020-02-12 19:12 | NUR ---
Pt brought from care home for recieving overdose of medication of lantus. Pt got 40 units instead of 4 units. Became hypoglycemic. unable to obtain iv access so pt was sent to ed, ems on arrival placed iv and gave 10grams of sugar. Pt also got d10 drip. Pt had bg of 138 in the ed.
--- NOTE | 2020-02-12 19:24 | NUR ---
BEDSIDE REPORT AND CARE FROM LIS SMITH. DR. DAMON AT BEDSIDE FOR EVALUATION, AWAITING ORDERS. PT A&OX4. DENIES ANY PAIN. "I FEEL BETTER NOW, THEY GAVE ME GLUCOSE TABLETS AND GATORADE AND SOME FOOD. VSS. SR ON MONITOR. DIABETIC DIET TRAY ORDERED PER DR. DAMON. AT BEDSIDE WITH PT. CALL LIGHT IN REACH. FALL PRECAUTIONS IN PLACE.
[2020-02-12 20:01] LABS: BASOPHILS # (AUTO) 0.03 x10^3/uL (0-0.1); BASOPHILS % (AUTO) 0 % (0-1); EOSINOPHILS # (AUTO) 0.16 x10^3/uL (0-0.4); EOSINOPHILS % (AUTO) 3 % (1-7); LYMPHOCYTES # (AUTO) 1.86 x10^3/uL (1-3.4); LYMPHOCYTES % (AUTO) 30 % (22-44); MD NO; MEAN CORPUSCULAR HGB CONC 33.4 g/dL (33.2-36.2); MEAN CORPUSCULAR VOLUME 92.8 fL (81-97); MEAN PLATELET VOLUME 8.3 fL (7.4-10.4); MONOCYTES # (AUTO) 0.59 x10^3/uL (0.2-0.8); MONOCYTES % (AUTO) 9 % (2-9); NEUTROPHILS # (AUTO) 3.67 x10^3/uL (1.8-6.8); NEUTROPHILS % (AUTO) 58 % (42-75); PLATELET COUNT 239 x10^3/uL (130-400); RED BLOOD COUNT 4.23 x10^6/uL (4.38-5.82); RED CELL DISTRIBUTION WIDTH 15.9 % (9.4-14.8)
[2020-02-12 20:11] LABS: ALANINE AMINOTRANSFERASE 132 U/L (12-78); ANION GAP 5 mmol/L (5-15); CALCIUM 9.1 mg/dL (8.5-10.1); CHLORIDE 110 mmol/L (98-107); CREATININE 1.22 mg/dL (0.7-1.3)
[2020-02-12 20:13] LABS: ALKALINE PHOSPHATASE 61 U/L (45-117); BILIRUBIN,TOTAL < 0.1 mg/dL (0.2-1.0); TOTAL PROTEIN 7.5 g/dL (6.4-8.2)
--- NOTE | 2020-02-12 20:19 | NUR ---
FSBS CHECKED PER DR. DAMON, RESULT 122. DISCUSSED WITH DR. DAMON, AWARE. PT PROVIDED JUICE, SANDWHICH, CHIPS PER DR. DAMON. PT TOLERATING PO WELL. VSS. SR ON MONITOR. REMAINS A&OX4, CONVERSING APPROPRIATELY WITH DIRECTOR OF CATERING SALES AND STAFF. CALL LIGHT IN REACH. FALL PRECAUTIONS IN PLACE.
[2020-02-12 21:18] VITALS: BP 121/76
--- NOTE | 2020-02-12 21:18 | NUR ---
FSBS RECHECKED PER DR. DAMON, RESULT 209, MD AWARE. DR. DAMON AT BEDSIDE FOR RECHECK, VSS. SR ON MONITOR. REMAINS A&OX4. DENIES NEED TO USE RESTROOM. SKIN PWD. NO DIAPHORESIS OR SYMPTOMS REPORTED BY PT "FEEL GOOD."
--- NOTE | 2020-02-12 21:29 | NUR ---
AT BEDSIDE FOR RECHECK, DISCUSSING DISCHARGE POC.
--- NOTE | 2020-02-12 21:52 | NUR ---
JAYASHREE RN AT BEDSIDE TO ASSIST WITH PT DISCHARGE.
--- NOTE | 2020-02-12 21:57 | NUR ---
PT TO STAN WITH OFFICER
== END 2020-02-12 21:58 ==
LOC: ED 21:52
DX: E10.8 Type 1 diabetes mellitus with unspecified complications (principal); T38.3X1A Poisoning by insulin and oral hypoglycemic [antidiabetic] drugs, accidental (unintentional), initial encounter; R11.0 Nausea; G89.29 Other chronic pain; Y92.89 Other specified places as the place of occurrence of the external cause
CPT/HCPCS: 36415; 80053; 82962; 85025; 99283

== ENCOUNTER 2020-03-07 14:43 | Emergency (ER) | payer MEDICAID, OTHER ==
[~2020-03-07] VITALS: Ht 175.3 cm; Wt 86.5 kg
[~2020-03-07 14:43] MED LIST changes: -INSU100I13 SQ-INSULIN
[2020-03-07 15:13] VITALS: BP 128/77
[2020-03-07] MEDS ORDERED: MULT-658 PO (15:19)
[2020-03-07] MEDS ORDERED: ACET325T14 PO (15:19)
[2020-03-07] MEDS ORDERED: CHOL200074 PO (15:20)
[2020-03-07] MEDS ORDERED: PREG50CA PO (15:21)
--- NOTE | 2020-03-07 15:27 | NUR ---
CARL JAQUEZ AT BEDSIDE.
[2020-03-07] MEDS ORDERED: MAALOX/HYOSCYAMINE/LIDOCAINE 45 ML BTL ONE (15:53)
[2020-03-07] MEDS ORDERED: ONDANSETRON 2MG/ML, 2ML ONE (15:53)
[2020-03-07] MEDS ORDERED: FAMOTIDINE 20 MG/2 ML ONE (15:54)
[2020-03-07] MEDS ORDERED: ONDANSETRON 2MG/ML, 2ML IVPush ONE (16:00)
[2020-03-07] MEDS ORDERED: FAMOTIDINE 20 MG/2 ML IV ONE (16:00)
[2020-03-07] MEDS ORDERED: SODIUM CHLORIDE FLUSH 10ML SYR IVF ONE (16:00)
[2020-03-07] MEDS ORDERED: MAALOX/HYOSCYAMINE/LIDOCAINE 45 ML BTL PO ONE (16:00)
--- NOTE | 2020-03-07 16:01 | NUR ---
PT TO CT AT THIS TIME.
[2020-03-07 16:17] LABS: ALANINE AMINOTRANSFERASE 43 U/L (12-78); ALBUMIN 3.9 g/dL (3.4-5.0); ANION GAP 4 mmol/L (5-15); CALCIUM 9.1 mg/dL (8.5-10.1); CHLORIDE 108 mmol/L (98-107)
[2020-03-07 16:18] LABS: BASOPHILS # (AUTO) 0.04 x10^3/uL (0-0.1); BASOPHILS % (AUTO) 1 % (0-1); EOSINOPHILS # (AUTO) 0.15 x10^3/uL (0-0.4); EOSINOPHILS % (AUTO) 2 % (1-7); LYMPHOCYTES # (AUTO) 1.44 x10^3/uL (1-3.4); LYMPHOCYTES % (AUTO) 24 % (22-44); MD NO; MEAN CORPUSCULAR HGB CONC 33.1 g/dL (33.2-36.2); MEAN PLATELET VOLUME 8.5 fL (7.4-10.4); MONOCYTES # (AUTO) 0.36 x10^3/uL (0.2-0.8); MONOCYTES % (AUTO) 6 % (2-9); NEUTROPHILS # (AUTO) 4.08 x10^3/uL (1.8-6.8); NEUTROPHILS % (AUTO) 67 % (42-75); PLATELET COUNT 243 x10^3/uL (130-400); RED BLOOD COUNT 3.86 x10^6/uL (4.38-5.82); RED CELL DISTRIBUTION WIDTH 15.1 % (9.4-14.8)
[2020-03-07 16:20] LABS: ALKALINE PHOSPHATASE 53 U/L (45-117); BILIRUBIN,TOTAL 0.3 mg/dL (0.2-1.0); CREATININE 1.12 mg/dL (0.7-1.3); TOTAL PROTEIN 7.3 g/dL (6.4-8.2)
[2020-03-07] MEDS ORDERED: MORPHINE SULFATE 4 MG/ML, 1ML ONE (16:24)
[2020-03-07] MEDS ORDERED: MORPHINE SULFATE 4 MG/ML, 1ML IVPush PRN (16:30)
--- NOTE | 2020-03-07 16:57 | NUR ---
PATIENT COMPLAINED THAT HE HAS BEEN UNABLE TO VOID FOR SEVERAL HOURS. BLADDER SCAN PERFORMED AND WAS GREATER THAN 1 LITER. CARL JAQUEZ NOTIFIED. LLOYD CATHETER INSERTED. URINE OBTAINED IMMEDIATELY.
[2020-03-07 17:07] LABS: ACETONE, SERUM Trace (Negative)
[2020-03-07 17:17] LABS: MICROSCOPIC AUTO
[2020-03-07] MEDS ORDERED: INSULIN SINGLE DOSE, ER ONE (17:58)
[2020-03-07] MEDS ORDERED: INSULIN REGULAR 100 UNITS/ML, 3ML VIAL SQ-INSULIN ONE (18:00)
--- NOTE | 2020-03-07 18:56 | NUR ---
Deputies given discharge instructions and they have confirmed that they understand the instructions. Patient ambulatory with steady gait.
== END 2020-03-07 18:57 | disposition home or self-care (01) ==
LOC: ED 15:42
DX: R33.9 Retention of urine, unspecified (principal); K59.00 Constipation, unspecified; R10.84 Generalized abdominal pain; M79.89 Other specified soft tissue disorders; E10.9 Type 1 diabetes mellitus without complications; Z90.49 Acquired absence of other specified parts of digestive tract; Z90.89 Acquired absence of other organs
CPT/HCPCS: 36415; 51702; 74176; 80053; 81001; 82010; 82800; 82962; 83690; 85025; 96372; 96374; 96375; 99285; J1815; J2270; J2405; J3490; 99284